=== PATIENT | female | born 1945 | race Caucasian/White ===

== ENCOUNTER 2021-02-22 13:08 | Outpatient (REF) | payer MEDICARE, SELFPAY ==
--- NOTE | ~2021-02-22 | XR_ITS ---
EXAMINATION: XR TIBIA AND FIBULA, RIGHT CLINICAL INFORMATION: Repeated falls. Swelling. COMPARISON: None TECHNIQUE: AP and lateral views of the right tibia and fibula were obtained. FINDINGS: Bone alignment is normal. No fracture or dislocation is seen. The joint spaces are normal. There may be a soft tissue swelling over the upper zhang. There are small calcaneal spurs. XR/XR tibia fibula RT 2V IMPRESSION: No fracture or dislocation seen.
--- NOTE | ~2021-02-22 | XR_ITS ---
EXAMINATION: XR CHEST CLINICAL INFORMATION: Dyspnea. Pain post fall. COMPARISON: Previous chest x-ray most recent March 2019 TECHNIQUE: 2 views of the chest were obtained. FINDINGS: The cardiac silhouette is enlarged but stable. 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 Hilar and mediastinal contours are unremarkable. The lungs are clear. There is no pleural effusion or pneumothorax. There are degenerative changes of the spine. XR/XR chest 2V IMPRESSION: Slightly enlarged cardiac silhouette similar to previous exam. No evidence for acute disease in the chest.
--- NOTE | ~2021-02-22 | XR_ITS ---
EXAMINATION: XR THORACOLUMBAR SPINE CLINICAL INFORMATION: Pain post fall COMPARISON: None TECHNIQUE: 2 views of the thoracic spine FINDINGS: Bone alignment is normal. No fracture or dislocation is seen. There is multilevel degenerative spondylosis. Paraspinal soft tissues are unremarkable. XR/XR thoracic spine 2V IMPRESSION: Degenerative changes. No fracture seen.
== END 2021-02-22 13:09 | disposition home or self-care (01) ==
LOC: HO.XRAY 13:08
PROVIDERS: PCP Internal Medicine; Visit Provider Internal Medicine
DX: R60.0 Localized edema (principal); R29.6 Repeated falls; M54.6 Pain in thoracic spine; R06.09 Other forms of dyspnea
CPT/HCPCS: 71046; 72070; 73590

== ENCOUNTER 2021-02-26 11:48 | Outpatient (REF) | payer MEDICARE, SELFPAY | END 2021-02-26 11:49 | disposition home or self-care (01) | LOC: HO.XRAY 11:48 | PROVIDERS: PCP Internal Medicine; Visit Provider Internal Medicine | DX: Z13.89 Encounter for screening for other disorder (principal) ==